=== PATIENT | female | born 1930 | race American Indian/Alaskan Native ===

== ENCOUNTER 2018-11-20 19:59 | Inpatient (IN) | payer MEDICARE ==
[2018-11-20] MEDS ORDERED: ZOFRAN IV ONE ×2 (20:27→23:46)
[2018-11-20] MEDS ORDERED: MORPHINE IV ONE ×2 (20:27→22:03)
--- NOTE | 2018-11-20 20:31 | Emergency Department Report ---
HPI - General Chief Complaint: Abdominal Pain Time Seen by Provider: 11/20/18 20:12 - HPI HPI: 88-year-old -[place] female presents to the emergency department by EMS from home with complaint of a one-week history of upper abdominal pain. Patient denies any fever, dysuria, vaginal bleeding or discharge, diarrhea or constipation but does say that she has an occasional episode of nausea and vomiting. She is a poor historian and the family that his bedside does not know the extent of her medical history. However they do say that she has CHF and she has her medications at bedside that also appeared to show a history of hypertension and some type of arrhythmia as she is on amiodarone. She usually receives care through [place] where she apparently was recently admitted. Family says that she is currently on hospice secondary to her CHF but she "wanted to go home." ED Past Medical Hx - Past Medical History Previous Medical History?: Yes Hx Hypertension: Yes Hx Congestive Heart Failure: Yes Hx Diabetes: Yes (Controlled with diet) Hx Pulmonary Embolism: Yes Additional medical history: A-fib. Stomach Ulcers - Surgical History Past Surgical History?: No - Social History Smoking Status: Former Smoker Substance Use Type: None - Medications Home Medications: Home Medications Medication Instructions Recorded Confirmed Last Taken Type Amiodarone [Cordarone 200 MG TAB] 200 mg PO DAILY 11/20/18 11/20/18 Unknown History Digoxin [Lanoxin] 0.125 mg PO DAILY 11/20/18 11/20/18 Unknown History Furosemide [Lasix TAB] 40 mg PO QDAY 11/20/18 11/20/18 Unknown History Hyoscyamine Sulfate [Hyoscyamine 0.125 mg PO Q6HR PRN 11/20/18 11/20/18 Unknown History Rapdis 0.125 mg] Ondansetron [Zofran TAB] 4 mg PO Q4HR PRN 11/20/18 11/20/18 Unknown History Pantoprazole [Protonix TAB] 40 mg PO BID 11/20/18 11/20/18 Unknown History dilTIAZem HCl [Diltiazem ER] 180 mg PO DAILY 11/20/18 11/20/18 Unknown History traMADol [Ultram] 50 mg PO Q8HR PRN 11/20/18 11/20/18 Unknown History ED Review of Systems ROS: Stated complaint: ABD PAIN X 1 WK Other details as noted in HPI Comment: All other systems reviewed and negative Constitutional: denies: chills, fever Eyes: denies: eye pain, vision change ENT: denies: ear pain, throat pain Respiratory: denies: cough, shortness of breath Cardiovascular: denies: chest pain, palpitations Gastrointestinal: abdominal pain, nausea, vomiting Genitourinary: denies: dysuria, discharge Musculoskeletal: denies: back pain, arthralgia Skin: denies: rash, lesions Neurological: denies: headache, weakness Physical Exam - Physical Exam Vital Signs: Vital Signs 11/20/18 11/20/18 20:04 20:24 Temperature 97.8 F Pulse Rate 77 Respiratory 12 14 Rate Blood Pressure 161/70 O2 Sat by Pulse 100 99 Oximetry Physical Exam: GENERAL: Elderly appearing. HENT: Normocephalic. Atraumatic. Patient has moist mucous membranes. EYES: Extraocular motions are intact. Pupils equal reactive to light bilatera lly. NECK: Supple. Trachea is midline. CHEST/LUNGS: Clear to auscultation. There is no respiratory distress noted. HEART/CARDIOVASCULAR: Regular. There is no tachycardia. There is no murmur. ABDOMEN: Abdomen is soft. Upper abdominal tenderness to palpation. No guarding. Patient has normal bowel sounds. There is no abdominal distention. SKIN: Skin is warm and dry. She has two small stage II sacral decubitus ulcers. NEURO: The patient is awake, alert, and cooperative. The patient has no focal neurologic deficits. She speaks very softly. MUSCULOSKELETAL: There is no tenderness or deformity. There is no evidence of acute injury. ED Course Vital Signs 11/20/18 11/20/18 20:04 20:24 Temperature 97.8 F Pulse Rate 77 Respiratory 12 14 Rate Blood Pressure 161/70 O2 Sat by Pulse 100 99 Oximetry ED Medical Decision Making - Lab Data Result diagrams: 11/20/18 21:03 11/20/18 21:03 - EKG Data -: EKG Interpreted by Me EKG shows normal: sinus rhythm, axis, intervals (prolonged QT and QTc), QRS complexes (RBBB), ST-T waves (nonspecific ST-T waves) Rate: normal - EKG Data When compared to previous EKG there are: previous EKG unavailable Interpretation: other (sinus rhythm, right bundle branch block, nonspecific ST-T waves, prolonged QT and QTC intervals) - Radiology Data Radiology results: report reviewed, image reviewed interpreted by me: Chest x-ray shows some pulmonary vascular congestion and mild basilar pleural effusions. Abdominal x-ray shows nonspecific nonobstructive bowel gas. PROCEDURE: CT ABDOMEN PELVIS WO CON TECHNIQUE: Computerized axial tomography of the abdomen was performed without intravenous contrast. This study is performed without intravascular contrast material and its sensitivity for abdominal and pelvic pathology, including neoplasms, inflammation, abscess, free fluid, thrombosis, arterial dissection and infarction, is reduced compared with a contrast enhanced study. CT DOSE LENGTH PRODUCT: 620 mGycm HISTORY: abd pain COMPARISONS: None . FINDINGS: Mild degree bilateral pleural effusions are identified. There is moderate degree cardiomegaly with coronary arterial calcification. Visualized bilateral lung bases are free of infiltrates. There is mild degree ascites. Liver demonstrates an irregular cystic lesion in segment 4A measuring 2.8 x 1.8 cm. Spleen, pancreas and adrenal glands are within normal limits. Bilateral kidneys demonstrate normal density without calculi or hydronephrosis. Aorta is of normal caliber. There is no free air. Gallbladder contains hyperdense fluid. Small bowel loops are within normal limits. Appendix is normal. An IVC filter is noted. Vertebral height is normal. IMPRESSION: Mild degree bilateral pleural effusions and a mild degree ascites Nonspecific cystic lesion left lobe liver Moderate degree cardiomegaly with coronary arterial calcification No obvious acute intra-abdominal or pelvic pathology. This document is electronically signed by Abel Almaguer MD., November 20 2018 11:07:04 PM ET Transcribed By: [facility] [place] Dictated By: ABEL ALMAGUER Electronically Authenticated By: ABEL ALMAGUER Signed Date/Time: 11/20/18 3869 - Medical Decision Making This patient presents with the complaint of some upper abdominal pain, and some intermittent nausea and vomiting. Apparently the patient is on hospice secondary to her CHF but she does not have any complaints at this time of new shortness of breath or chest pain. Patient's labs show renal failure, elevated troponin, elevated digoxin level, anemia. Chest x-ray shows some signs of pleural effusions and pulmonary vascular congestion. Abdominal x-ray shows nonspecific nonobstructive bowel gas. A CT scan of the abdomen and pelvis was done and does not show any intra-abdominal or pelvic pathology. The patient's digoxin level was 3.2 which is considered to be at a toxic level. There is no hyperkalemia. No significant EKG changes consistent with digoxin toxicity. It is most likely a chronic elevation as opposed to an acute ingestion. It is possible that the level is elevated secondary to her renal insufficiency and decreased ability to metabolize the medication. The patient will be admitted to the hospital for further evaluation and treatment and was accepted for admission by the hospitalist, Dr. Gamino. - Differential Diagnosis SBO, digoxin toxicity, Food poisoning, atypical OK Critical Care Time: No Critical care attestation.: If time is entered above; I have spent that time in minutes in the direct care of this critically ill patient, excluding procedure time. ED Disposition Clinical Impression: Digoxin toxicity Qualifiers: Encounter type: initial encounter Injury intent: accidental or unintentional Qualified Code(s): T46.0X1A - Poisoning by cardiac-stimulant glycosides and drugs of similar action, accidental (unintentional), initial encounter Abdominal pain Qualifiers: Abdominal location: upper abdomen, unspecified Qualified Code(s): R10.10 - Upper abdominal pain, unspecified CHF (congestive heart failure) Qualifiers: Heart failure type: unspecified Heart failure chronicity: unspecified Qualified Code(s): I50.9 - Heart failure, unspecified Acute renal failure Qualifiers: Acute renal failure type: unspecified Qualified Code(s): N17.9 - Acute kidney failure, unspecified Disposition: 09 OP ADMIT IP TO THIS HOSP Is pt being admited?: Yes Condition: Serious Time of Disposition: 03:27
[2018-11-20 21:26] LABS: Basophils # (Auto) 0.1 K/mm3 (0.0-0.1); Eosinophils % (Auto) 0.5 % (0.0-4.3); Hematocrit 29.9 % (30.3-42.9); Hemoglobin 9.5 gm/dl (10.1-14.3); Lymphocytes # (Auto) 0.5 K/mm3 (1.2-5.4); Lymphocytes % (Auto) 8.6 % (13.4-35.0); Mean Corpuscular HGB Conc 32 % (30-34); Mean Corpuscular Volume 90 fl (79-97); Monocytes # (Auto) 0.5 K/mm3 (0.0-0.8); Platelet Count 168 K/mm3 (140-440); Red Blood Count 3.33 M/mm3 (3.65-5.03); Red Cell Distribution Width 19.3 % (13.2-15.2)
--- NOTE | 2018-11-20 21:44 | XRay Report ---
PROCEDURE: XR ABDOMEN 2V TECHNIQUE: Abdominal series, including supine and upright AP views. HISTORY: Abdominal Pain COMPARISONS: None . FINDINGS: Bowel gas pattern: Mild degree of residual stool is noted in the colon and rectum. Intestinal gas is distributed predominantly in nondistended colon. Hyperdense material is noted in the large bowel most likely representing residual barium from prior barium study.. Masses or calcifications: None . Bony structures: No significant abnormality . Pneumoperitoneum: None . Other: An IVC filter is identified. IMPRESSION: No acute abnormality. This document is electronically signed by Ruben Almaguer MD., November 20 2018 09:42:45 PM ET
[2018-11-20 21:59] LABS: Albumin 2.7 g/dL (3.9-5); Bilirubin,Direct 0.3 mg/dL (0-0.2); Calcium 8.3 mg/dL (8.4-10.2)
[2018-11-20 22:09] LABS: Chol/HDL Ratio 2.37 %
--- NOTE | 2018-11-20 22:35 | XRay Report ---
PROCEDURE: XR CHEST 1V AP TECHNIQUE: Chest radiograph single view. HISTORY: CP COMPARISONS: None . FINDINGS: Heart: Normal. Mediastinum/Vessels: Mild degree pulmonary venous congestion is noted.. Lungs/Pleural space: There is moderate degree of elevation of right hemidiaphragm. Mild blunting of right costophrenic angle is noted. A patchy density is noted in the left lower lung.. Bony thorax: No acute osseous abnormality. Life support devices: None. IMPRESSION: Mild degree right pleural effusion Mild degree pulmonary venous congestion consistent with CHF Patchy density left lower lung may represent atelectatic versus infiltrative changes. A two-view ches t study is recommended whenever the patient's condition permits.. This document is electronically signed by Ruben Almaguer MD., November 20 2018 10:33:09 PM ET
--- NOTE | 2018-11-20 23:09 | Cat Scan Report ---
PROCEDURE: CT ABDOMEN PELVIS WO CON TECHNIQUE: Computerized axial tomography of the abdomen was performed without intravenous contrast. This study is performed without intravascular contrast material and its sensitivity for abdominal and pelvic pathology, including neoplasms, inflammation, abscess, free fluid, thrombosis, arterial disse ction and infarction, is reduced compared with a contrast enhanced study. CT DOSE LENGTH PRODUCT: 620 mGycm HISTORY: abd pain COMPARISONS: None . FINDINGS: Mild degree bilateral pleural effusions are identified. There is moderate degree cardiomegaly with co ronary arterial calcification. Visualized bilateral lung bases are free of infiltrates. There is mild degree ascites. Liver demonstrates an irregular cystic lesion in segment 4A measuring 2.8 x 1.8 cm. Spleen, pancreas and adrenal glands are within normal limits. Bilateral kidneys demonstrate normal de nsity without calculi or hydronephrosis. Aorta is of normal caliber. There is no free air. Gallbladde r contains hyperdense fluid. Small bowel loops are within normal limits. Appendix is normal. An IVC f ilter is noted. Vertebral height is normal. IMPRESSION: Mild degree bilateral pleural effusions and a mild degree ascites Nonspecific cystic lesion left lobe liver Moderate degree cardiomegaly with coronary arterial calcification No obvious acute intra-abdominal or pelvic pathology. This document is electronically signed by Ruben Almaguer MD., November 20 2018 11:07:04 PM ET
[2018-11-20] MEDS ORDERED: PEPCID IV ONE ×2 (23:47→23:51)
[2018-11-21] MEDS ORDERED: NACL 0.9% 500 ML 500 ML IV ONE (00:01)
[2018-11-21] MEDS ORDERED: NON-FORMULARY (Hyoscyamine Sulfate [Hyoscyamine Rapdis 0.125 Mg] 0.125 MG) PO PRN (00:14)
[2018-11-21] MEDS ORDERED: ZOFRAN IV PRN (00:16)
[2018-11-21] MEDS ORDERED: SODIUM CHLORIDE FLUSH SYRINGE 10 ML IV PRN (00:16)
[2018-11-21] MEDS ORDERED: TYLENOL PO PRN (00:16)
[2018-11-21] MEDS ORDERED: MORPHINE IV PRN (00:21)
[2018-11-21] MEDS ORDERED: CARDIZEM IV PRN (00:26)
--- NOTE | 2018-11-21 00:32 | History and Physical Report ---
History of Present Illness Chief complaint: I have pain in my belly History of present illness: 88-year-old woman who was brought in by EMS for 1 week of upper abdominal pain. The pain started out mild, but it had worsened in intensity. It is generalized abdominal pain. Associated with nausea and vomiting. She has vomited multiple times today and unable to keep anything down. Past medical history; A. fib, peptic ulcer disease, history of pulmonary embolism not currently on anticoagulation, diet-controlled type 2 diabetes, CHF on digoxin, hypertension Past surgical history; denies major surgeries Social history; former smoker, lives at home, Family history; heart disease Constitutional: no fever, no chills, no night sweats, generalized weakness and fatigue Eyes: bilateral: other (no complaint of visual problems.) Ears, nose, mouth and throat: mouth pain, no ear pain, no ear discharge, no decreased hearing, no nose pain, no nasal congestion, no bleeding gums, no dental pain, no dysphagia, no hoarseness, no sore throat Cardiovascular: no orthopnea, no palpitations, no rapid/irregular heart beat, no phlebitis Respiratory: no cough with sputum, no excessive sputum, no hemoptysis, no wheezing, no pleurisy, no pain Gastrointestinal: Complaining of abdominal pain nausea and vomiting Rectal: no pain, no incontinence, no bleeding Musculoskeletal: no neck stiffness, no neck pain, no shooting arm pain, no arm numbness/tingling, no low back pain, no shooting leg pain, no leg numbness/tingling Integumentary: no pruritis, no redness, no sores Neurological: no transient paralysis, no paralysis, no weakness Psychiatric: no memory loss, no change in sleep habits, no disorientation Endocrine: no heat intolerance, no polyphagia Hematologic/Lymphatic: no easy bruising, no easy bleeding Allergic/Immunologic: no allergic rhinitis Medications and Allergies Allergies Allergy/AdvReac Type Severity Reaction Status Date / Time No Known Allergies Allergy Verified 11/20/18 20:04 Home Medications Medication Instructions Recorded Confirmed Last Taken Type Amiodarone [Cordarone 200 MG TAB] 200 mg PO DAILY 11/20/18 11/20/18 Unknown History Digoxin [Lanoxin] 0.125 mg PO DAILY 11/20/18 11/20/18 Unknown History Furosemide [Lasix TAB] 40 mg PO QDAY 11/20/18 11/20/18 Unknown History Hyoscyamine Sulfate [Hyoscyamine 0.125 mg PO Q6HR PRN 11/20/18 11/20/18 Unknown History Rapdis 0.125 mg] Ondansetron [Zofran TAB] 4 mg PO Q4HR PRN 11/20/18 11/20/18 Unknown History Pantoprazole [Protonix TAB] 40 mg PO BID 11/20/18 11/20/18 Unknown History dilTIAZem HCl [Diltiazem ER] 180 mg PO DAILY 11/20/18 11/20/18 Unknown History traMADol [Ultram] 50 mg PO Q8HR PRN 11/20/18 11/20/18 Unknown History Active Meds: Active Medications Acetaminophen (Tylenol) 650 mg PO Q4H PRN PRN Reason: Pain MILD(1-3)/Fever >100.5/OLIVIER Diltiazem HCl (Cardizem) 10 mg IV Q6H PRN PRN Reason: sustained HR > 130 Enoxaparin Sodium (Lovenox) 30 mg SUB-Q QDAY MARY JANE Sodium Chloride (Nacl 0.9% 500 Ml) 500 mls @ 999 mls/hr IV ONCE ONE Stop: 11/21/18 00:31 Last Admin: 11/21/18 00:23 Dose: 999 mls/hr Documented by: Miscellaneous Medication (Hyoscyamine Sulfate [Hyoscyamine Rapdis 0.125 Mg]) 0.125 mg PO Q6HR PRN PRN Reason: Secretions Morphine Sulfate (Morphine) 2 mg IV Q4H PRN PRN Reason: Pain, Moderate (4-6) Ondansetron HCl (Zofran) 4 mg IV Q4HR PRN PRN Reason: Nausea And Vomiting Sodium Chloride (Sodium Chloride Flush Syringe 10 Ml) 10 ml IV BID MARY JANE Sodium Chloride (Sodium Chloride Flush Syringe 10 Ml) 10 ml IV PRN PRN PRN Reason: LINE FLUSH Exam - Constitutional Vitals: Temp Pulse Resp BP Pulse Ox 97.8 F 62 9 L 148/104 98 11/20/18 20:04 11/21/18 00:00 11/21/18 00:00 11/21/18 00:00 11/21/18 00:00 General appearance: Present: mild distress, well-nourished - EENT Eyes: Present: PERRL ENT: hearing intact, clear oral mucosa (dry mucous membranes) - Neck Neck: Present: supple, normal ROM - Respiratory Respiratory effort: normal Respiratory: bilateral: CTA - Cardiovascular Heart Sounds: Present: S1 & S2. Absent: rub, click - Extremities Extremities: pulses symmetrical, No edema Peripheral Pulses: within normal limits - Abdominal General gastrointestinal: Present: soft, non-tender, non-distended, normal bowel sounds Female genitourinary: Present: normal - Integumentary Integumentary: Present: clear, warm, dry - Musculoskeletal Musculoskeletal: gait normal, strength equal bilaterally - Psychiatric Psychiatric: appropriate mood/affect, intact judgment & insight - Neurologic Neurologic: CNII-XII intact, moves all extremities Results - Labs CBC & Chem 7: 11/20/18 21:03 11/20/18 21:03 Labs: Laboratory Last Values WBC 5.5 K/mm3 (4.5-11.0) 11/20/18 21:03 RBC 3.33 M/mm3 (3.65-5.03) L 11/20/18 21:03 Hgb 9.5 gm/dl (10.1-14.3) L 11/20/18 21:03 Hct 29.9 % (30.3-42.9) L 11/20/18 21:03 MCV 90 fl (79-97) 11/20/18 21:03 MCH 29 pg (28-32) 11/20/18 21:03 MCHC 32 % (30-34) 11/20/18 21:03 RDW 19.3 % (13.2-15.2) H 11/20/18 21:03 Plt Count 168 K/mm3 (140-440) 11/20/18 21:03 Lymph % (Auto) 8.6 % (13.4-35.0) L 11/20/18 21:03 [place] % (Auto) 10.0 % (0.0-7.3) H 11/20/18 21:03 Eos % (Auto) 0.5 % (0.0-4.3) 11/20/18 21:03 Baso % (Auto) 1.0 % (0.0-1.8) 11/20/18 21:03 Lymph # 0.5 K/mm3 (1.2-5.4) L 11/20/18 21:03 [place] # 0.5 K/mm3 (0.0-0.8) 11/20/18 21:03 Eos # 0.0 K/mm3 (0.0-0.4) 11/20/18 21:03 Baso # 0.1 K/mm3 (0.0-0.1) 11/20/18 21:03 Seg Neutrophils % 79.9 % (40.0-70.0) H 11/20/18 21:03 Seg Neutrophils # 4.4 K/mm3 (1.8-7.7) 11/20/18 21:03 Sodium 137 mmol/L (137-145) 11/20/18 21:03 Potassium 4.0 mmol/L (3.6-5.0) 11/20/18 21:03 Chloride 90.8 mmol/L (98-107) L 11/20/18 21:03 Carbon Dioxide 35 mmol/L (22-30) H 11/20/18 21:03 15 mmol/L 11/20/18 21:03 BUN 27 mg/dL (7-17) H 11/20/18 21:03 1.9 mg/dL (0.7-1.2) H 11/20/18 21:03 Estimated GFR 25 ml/min 11/20/18 21:03 14 % 11/20/18 21:03 Glucose 117 mg/dL (65-100) H 11/20/18 21:03 Calcium 8.3 mg/dL (8.4-10.2) L 11/20/18 21:03 0.60 mg/dL (0.1-1.2) 11/20/18 21:03 0.3 mg/dL (0-0.2) H 11/20/18 21:03 0.3 mg/dL 11/20/18 21:03 AST 22 units/L (5-40) 11/20/18 21:03 ALT 15 units/L (7-56) 11/20/18 21:03 103 units/L (35-129) 11/20/18 21:03 0.075 ng/mL (0.00-0.029) H 11/20/18 21:03 6.3 g/dL (6.3-8.2) 11/20/18 21:03 2.7 g/dL (3.9-5) L 11/20/18 21:03 0.8 % 11/20/18 21:03 Triglycerides 98 mg/dL (2-149) 11/20/18 21:03 Cholesterol 157 mg/dL (50-199) 11/20/18 21:03 78 mg/dL (50-130) 11/20/18 21:03 66 mg/dL (40-59) H 11/20/18 21:03 2.37 % 11/20/18 21:03 7 units/L (13-60) L 11/20/18 21:03 Digoxin 3.2 ng/mL (0.9-2.0) H* 11/20/18 21:03 Assessment and Plan Assessment and plan: 88-year-old woman who has history of CHF and A. fib who is on digoxin at home who presents with nausea vomiting and abdominal pain CT abdomen and pelvis; mild degree bilateral pleural effusions and a mild degree ascites, nonspecific cystic lesion of left lobe of liver, moderate degree cardiomegaly with coronary arterial calcification, no obvious intra-abdominal or pelvic pathology Abdominal x-ray; no acute abnormality Chest x-ray; mild degree right pleural effusion, mild degree pulmonary venous congestion consistent with CHF, patchy density left lower lung a represent atelectasis versus infiltrative changes, a 2 view chest x-ray is recommended and patient's condition permits Digoxin toxicity/supratherapeutic levels Hold digoxin, check levels daily, no arrthymia on EKG, no hyperkalemia (no need for digibind at this time) Nausea vomiting/abdominal pain CT abdomen and pelvis shows no acute findings likely due to digoxin toxicity, cont PPI, convert meds to IV and keep NPO for now, plan to start clear liquid diet in am (if N/V has resolved by them), primary team to reasses in am Chronic afib HR currently in 60s-70s (at risk for bradycardia arrhythmia given digoxin toxicity), hold amio and dilt at this time, give IV dilt PRN HR > 130 Acute kidney injury, likely due to dig toxicity Patient received 500 mL of fluid in the ER, she has not made urine yet, will obtain UA and urine studies when she makes urine, and nephrology consults CHF; cardiology consult, does not appear to be clinically in exacerbation at this time, will not give any further fluids at this point, obtain echo (takes amio, cardizem, lasix and dig at home) Liver cysts/mass; patient should get MRI liver when she is clinically improved Left lung infiltrate?; Obtain 2 view chest x-ray, clinically doubt pneumonia at this point History of peptic ulcer disease; continue Protonix Diet-controlled type 2 diabetes; sliding scale insulin. DVT prophylaxis with Lovenox
[2018-11-21] MEDS ORDERED: D50W (25GM) Syringe IV PRN (00:35)
[2018-11-21] MEDS ORDERED: LEVSIN SL PO PRN (00:40)
--- NOTE | 2018-11-21 01:11 | XRay Report ---
PROCEDURE: XR CHEST 1V AP TECHNIQUE: Chest radiograph single view. HISTORY: infiltrate? on 1v xr COMPARISONS: 11/20/2018 . FINDINGS: Heart: The heart size is slightly pronounced. Mediastinum/Vessels: Normal. Lungs/Pleural space: Mild vascular congestion with bilateral lower lung atelectasis and mild effusio ns.. Bony thorax: No acute osseous abnormality. Life support devices: None. IMPRESSION: Mild CHF with bilateral lower lung atelectasis and mild effusions. This document is electronically signed by Rachel Negro DO., November 21 2018 01:08:55 AM ET
[2018-11-21] MEDS: LEVSIN SL PO PRN ×2 (03:27→09:34)
[2018-11-21] MEDS: HumaLOG SUB-Q SCH ×3 (06:25→17:11)
[2018-11-21] MEDS: PROTONIX IV SCH (09:33)
[2018-11-21] MEDS: LOVENOX SUB-Q SCH (09:33)
[2018-11-21] MEDS: SODIUM CHLORIDE FLUSH SYRINGE 10 ML IV SCH ×2 (09:43→22:59)
--- NOTE | 2018-11-21 10:05 | Consultation ---
History of Present Illness Consult date: 11/21/18 Consult reason: congestive heart failure History of present illness: This is a frail, 88-year old woman who was brought to this hospital with nausea, vomiting abdominal pain admitted with renal failure and digoxin toxicity. It's reported the patient was recently discharged from [facility] after treatment of CHF. There are no records available for review. Patient denies unusual shortness of breath, chest pain and palpitations. Chest x-ray reports mild vascular congestion with bilateral lower lung atelectasis. An EKG is sinus rhythm with a right bundle branch block. Medications and Allergies Allergies Allergy/AdvReac Type Severity Reaction Status Date / Time No Known Allergies Allergy Verified 11/20/18 20:04 Home Medications Medication Instructions Recorded Confirmed Last Taken Type Amiodarone [Cordarone 200 MG TAB] 200 mg PO DAILY 11/20/18 11/20/18 Unknown History Digoxin [Lanoxin] 0.125 mg PO DAILY 11/20/18 11/20/18 Unknown History Furosemide [Lasix TAB] 40 mg PO QDAY 11/20/18 11/20/18 Unknown History Hyoscyamine Sulfate [Hyoscyamine 0.125 mg PO Q6HR PRN 11/20/18 11/20/18 Unknown History Rapdis 0.125 mg] Ondansetron [Zofran TAB] 4 mg PO Q4HR PRN 11/20/18 11/20/18 Unknown History Pantoprazole [Protonix TAB] 40 mg PO BID 11/20/18 11/20/18 Unknown History dilTIAZem HCl [Diltiazem ER] 180 mg PO DAILY 11/20/18 11/20/18 Unknown History traMADol [Ultram] 50 mg PO Q8HR PRN 11/20/18 11/20/18 Unknown History Active Meds: Active Medications Acetaminophen (Tylenol) 650 mg PO Q4H PRN PRN Reason: Pain MILD(1-3)/Fever >100.5/OLIVIER Dextrose (D50w (25gm) Syringe) 50 ml IV PRN PRN PRN Reason: Hypoglycemia Diltiazem HCl (Cardizem) 10 mg IV Q6H PRN PRN Reason: sustained HR > 130 Enoxaparin Sodium (Lovenox) 30 mg SUB-Q QDAY MARY JANE Last Admin: 11/21/18 09:33 Dose: 30 mg Documented by: Hyoscyamine (Levsin Sl) 0.125 mg PO Q6H PRN PRN Reason: Secretions; mild pain (1-3) Last Admin: 11/21/18 09:34 Dose: 0.125 mg Documented by: Insulin Human Lispro (Humalog) 0 unit SUB-Q Q6HR [facility]; Protocol Last Admin: 11/21/18 06:25 Dose: Not Given Documented by: Morphine Sulfate (Morphine) 2 mg IV Q4H PRN PRN Reason: Pain, Moderate (4-6) Ondansetron HCl (Zofran) 4 mg IV Q4HR PRN PRN Reason: Nausea And Vomiting Last Admin: 11/21/18 09:41 Dose: 4 mg Documented by: Pantoprazole Sodium (Protonix) 40 mg IV QDAY [facility] Last Admin: 11/21/18 09:33 Dose: 40 mg Documented by: Sodium Chloride (Sodium Chloride Flush Syringe 10 Ml) 10 ml IV BID [facility] Last Admin: 11/21/18 09:43 Dose: 10 ml Documented by: Sodium Chloride (Sodium Chloride Flush Syringe 10 Ml) 10 ml IV PRN PRN PRN Reason: LINE FLUSH Physical Examination Vital Signs Temp Pulse Resp BP Pulse Ox 97.8 F 77 12 161/70 100 11/20/18 20:04 11/20/18 20:04 11/20/18 20:04 11/20/18 20:04 11/20/18 20:04 General appearance: no acute distress Cardiac: Positive: Reg Rate and Rhythm Results 11/20/18 21:03 11/20/18 21:03 Cardiac Enzymes 11/20/18 Range/Units 21:03 AST 22 (5-40) units/L Lipids 11/20/18 Range/Units 21:03 Triglycerides 98 (2-149) mg/dL Cholesterol 157 (50-199) mg/dL HDL Cholesterol 66 H (40-59) mg/dL Cholesterol/HDL Ratio 2.37 % CBC 11/20/18 Range/Units 21:03 WBC 5.5 (4.5-11.0) K/mm3 RBC 3.33 L (3.65-5.03) M/mm3 Hgb 9.5 L (10.1-14.3) gm/dl Hct 29.9 L (30.3-42.9) % Plt Count 168 (140-440) K/mm3 Lymph # 0.5 L (1.2-5.4) K/mm3 Lander # 0.5 (0.0-0.8) K/mm3 Eos # 0.0 (0.0-0.4) K/mm3 Baso # 0.1 (0.0-0.1) K/mm3 Comprehensive Metabolic Panel 11/20/18 Range/Units 21:03 Sodium 137 (137-145) mmol/L Potassium 4.0 (3.6-5.0) mmol/L Chloride 90.8 L (98-107) mmol/L Carbon Dioxide 35 H (22-30) mmol/L BUN 27 H (7-17) mg/dL Creatinine 1.9 H (0.7-1.2) mg/dL Glucose 117 H (65-100) mg/dL Calcium 8.3 L (8.4-10.2) mg/dL Direct Bilirubin 0.3 H (0-0.2) mg/dL Indirect Bilirubin 0.3 mg/dL AST 22 (5-40) units/L ALT 15 (7-56) units/L Alkaline Phosphatase 103 (35-129) units/L Total Protein 6.3 (6.3-8.2) g/dL Albumin 2.7 L (3.9-5) g/dL Assessment and Plan Abdominal pain with n/v Acute renal failure Digoxin toxicity Acute on chronic CHF
--- NOTE | 2018-11-21 11:26 | Consultation ---
History of Present Illness - Reason for Consult Consult date: 11/21/18 acute renal failure Requesting physician: ELVIRA BARRETT - History of Present Illness 88-year-old lady with a history of hypertension, atrial fibrillation, congestive heart failure on digoxin was recently hospitalized at [facility] with congestive heart failure exacerbation. Patient was discharged on home hospice. Presents on account of 3 day history of upper abdominal pain with nausea and vomiting. No diarrhea. No fever or chills. Appetite has been poor. Patient's grandsons live with her and unfortunately do not really taking care of her and so when her nieces came to visit her from [place] and saw patient's condition and especially when her symptoms kept getting worse they decided to bring her to the hospital for evaluation. On admission, BUN/creatinine of 27/1 .9 mg/dL. I'm consulted to assist in managing this. Patient is not aware of having any kidney problems Past History Past Medical History: atrial fib, diabetes (peptic ulcer disease), hypertension, other (peptic ulcer disease, history of pulmonary embolism) Past Surgical History: No surgical history Social history: alcohol abuse (drank alcohol socially sparingly but has not had a drink in a long time), other (her grandsons live with her. 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 denies: smoking, prescription drug abuse, IV drug use Family history: cancer (couple of brothers of cancer), diabetes (Mother of complications of diabetes mellitus.), other (father of tuberculosis at a young age) Medications and Allergies Allergies Allergy/AdvReac Type Severity Reaction Status Date / Time No Known Allergies Allergy Verified 11/20/18 20:04 Home Medications Medication Instructions Recorded Confirmed Last Taken Type Amiodarone [Cordarone 200 MG TAB] 200 mg PO DAILY 11/20/18 11/20/18 Unknown History Digoxin [Lanoxin] 0.125 mg PO DAILY 11/20/18 11/20/18 Unknown History Furosemide [Lasix TAB] 40 mg PO QDAY 11/20/18 11/20/18 Unknown History Hyoscyamine Sulfate [Hyoscyamine 0.125 mg PO Q6HR PRN 11/20/18 11/20/18 Unknown History Rapdis 0.125 mg] Ondansetron [Zofran TAB] 4 mg PO Q4HR PRN 11/20/18 11/20/18 Unknown History Pantoprazole [Protonix TAB] 40 mg PO BID 11/20/18 11/20/18 Unknown History dilTIAZem HCl [Diltiazem ER] 180 mg PO DAILY 11/20/18 11/20/18 Unknown History traMADol [Ultram] 50 mg PO Q8HR PRN 11/20/18 11/20/18 Unknown History Active Meds: Active Medications Acetaminophen (Tylenol) 650 mg PO Q4H PRN PRN Reason: Pain MILD(1-3)/Fever >100.5/OLIVIER Dextrose (D50w (25gm) Syringe) 50 ml IV PRN PRN PRN Reason: Hypoglycemia Diltiazem HCl (Cardizem) 10 mg IV Q6H PRN PRN Reason: sustained HR > 130 Enoxaparin Sodium (Lovenox) 30 mg SUB-Q QDAY [facility] Last Admin: 11/21/18 09:33 Dose: 30 mg Documented by: Hyoscyamine (Levsin Sl) 0.125 mg PO Q6H PRN PRN Reason: Secretions; mild pain (1-3) Last Admin: 11/21/18 09:34 Dose: 0.125 mg Documented by: Insulin Human Lispro (Humalog) 0 unit SUB-Q Q6HR [facility]; Protocol Last Admin: 11/21/18 06:25 Dose: Not Given Documented by: Morphine Sulfate (Morphine) 2 mg IV Q4H PRN PRN Reason: Pain, Moderate (4-6) Ondansetron HCl (Zofran) 4 mg IV Q4HR PRN PRN Reason: Nausea And Vomiting Last Admin: 11/21/18 09:41 Dose: 4 mg Documented by: Pantoprazole Sodium (Protonix) 40 mg IV QDAY [facility] Last Admin: 11/21/18 09:33 Dose: 40 mg Documented by: Sodium Chloride (Sodium Chloride Flush Syringe 10 Ml) 10 ml IV BID [facility] Last Admin: 11/21/18 09:43 Dose: 10 ml Documented by: Sodium Chloride (Sodium Chloride Flush Syringe 10 Ml) 10 ml IV PRN PRN PRN Reason: LINE FLUSH Review of Systems All systems: negative (Constitutional: no fever or chills. No anorexia or weight loss. HEENT: No sore throat or sinus drainage no hearing or vision impairment . Cardiovascular: No chest pain, admits to shortness of breath, no palpitations, lower extremity swelling or dizziness. Respiratory: Cough productive of whitish sputum, shortness of breath, hemoptysis or wheezing. Gastrointestinal: No nausea, vomiting, diarrhea, abdominal pain, hematemesis or melena. Genitourinary: No frequency urgency dysuria or hematuria. hematologic: No abnormal bleeding or bruising. Integumentary: Admits to generalized itching but no rash. Musculoskeletal: No joint pains no stiffness. Psychiatry: no anxiety or depression) Exam - Vital Signs Vital signs: Vital Signs Temp Pulse Resp BP Pulse Ox 97.8 F 77 12 161/70 100 11/20/18 20:04 11/20/18 20:04 11/20/18 20:04 11/20/18 20:04 11/20/18 20:04 Results - Lab Results 11/20/18 21:03 11/20/18 21:03 Most recent lab results Calcium 8.3 mg/dL (8.4-10.2) L 11/20/18 21:03 Assessment and Plan - Patient Problems (1) Acute renal failure Current Visit: Yes Status: Acute Qualifiers: Acute renal failure type: unspecified Qualified Code(s): N17.9 - Acute kidney failure, unspecified Plan to address problem: Acute on Chronic kidney injury. Suspect acute cardiorenal syndrome. Get urine studies and kidney ultrasound. NEED TO REVIEW RECORDS FROM [place] TO ASCERTAIN BASELINE KIDNEY FUNCTION. FOLLOW-UP ELECTROLYTES AND FUNCTION. (2) Nausea and vomiting Current Visit: Yes Status: Acute Plan to address problem: Continue antiemetics. (3) Hypertensive chronic kidney disease with stage 1 through stage 4 chronic kidney disease, or unspecified chronic kidney disease Current Visit: Yes Status: Acute Plan to address problem: Follow-up blood pressure on current medications (4) Chronic kidney disease, unspecified Current Visit: Yes Status: Acute Plan to address problem: Suspect patient has chronic kidney disease possibly secondary to hypertensive nephrosclerosis and/or chronic cardiorenal syndrome. Get old records from [facility]. Follow-up electrolytes and renal function (5) CHF (congestive heart failure) Current Visit: Yes Status: Acute Qualifiers: Heart failure type: unspecified Heart failure chronicity: unspecified Qualified Code(s): I50.9 - Heart failure, unspecified Plan to address problem: Get records from [place]. Follow-up 2-D echo. Gentle diuresis. Cardiology has been consulted. (6) Digoxin toxicity Current Visit: Yes Status: Acute Qualifiers: Encounter type: initial encounter Injury intent: accidental or unintentional Qualified Code(s): T46.0X1A - Poisoning by cardiac-stimulant glycosides and drugs of similar action, accidental (unintentional), initial encounter Plan to address problem: Probably secondary to decreased renal clearance. Agree with holding digoxin. Follow-up level (7) Anemia Current Visit: Yes Status: Acute Plan to address problem: Suspect anemia of chronic kidney disease. Unclear if there is any acute worsening. Get old records. Follow-up hemoglobin and get anemia workup
--- NOTE | 2018-11-21 17:26 | Event Note ---
Date: 11/21/18 She was admitted this morning with abdominal and chest pain and acute kidney injury Sincerely and examined medical records reviewed Patient is evaluated by cardiology as well as nephrology Assessment and plan; --Abdominal pain with intractable nausea vomiting; Center abdomen no acute abnormalities Probably secondary to dig toxicity Patient has history of GI bleeding, endoscopy done in [facility] Protonix, hold digoxin, supportive care --Acute renal failure; vasomotor nephropathy, gentle hydration Avoid nephrotoxins, nephrology following --History of PE not on anticoagulation[due to GI bleeding] --Status post IVC filter placement --Chronic diastolic congestive heart failure ;Diastolic dysfunction on echo Cardiology following --Digoxin toxicity; causing GI symptoms, hold digoxin --History of recent aspiration pneumonia --Severe malnutrition/hypoalbuminemia; supportive care nutrition consult if needed --Discharge planning; home hospice Monitor glucoses and adjust management Possible discharge in 1-2 days if stable
[2018-11-22 06:36] LABS: Calcium 8.8 mg/dL (8.4-10.2)
[2018-11-22] MEDS: HumaLOG SUB-Q SCH ×2 (07:55→12:14)
[2018-11-22] MEDS: PROTONIX IV SCH (10:25)
[2018-11-22] MEDS: SODIUM CHLORIDE FLUSH SYRINGE 10 ML IV SCH (10:26)
[2018-11-22] MEDS: LOVENOX SUB-Q SCH (10:26)
--- NOTE | 2018-11-22 11:30 | Progress Note ---
Assessment and Plan Chronic diastolic heart failure with cor pulmonale on echo done at [place] November 2018. Echo at [place] showing normal LVEF, Grade 2 DDx, moderate RVE, moderate to severe TR, RVSP 77 mm Hg and dilated IVC History of acute PE November 2018 not on anticoagulation due to lower GI bleeding. s/p IVC filter. Endoscopy not performed at [place]. Recently admitted to [place] for aspiration pneumonia, respiratory failure and discharged to home hospice Chronic renal failure with a creatinine of 2.11 Abdominal pain, nausea and vomiting - reason for admission Likely secondary to dig toxicity NAP on abdomen CT Recommendations: Supportive care No further cardiac work-up Avoid digoxin Subjective Date of service: 11/22/18 Principal diagnosis: Nausea and vomiting Interval history: Patient is feeling better this morning Nausea has improved Objective Vital Signs Temp Pulse Resp BP Pulse Ox 11/22/18 07:57 97.9 F 83 16 160/73 100 11/21/18 23:55 97.8 F 91 H 18 147/77 100 11/21/18 19:56 98.3 F 88 18 140/81 100 11/21/18 19:53 85 11/21/18 16:18 97.9 F 85 18 154/74 98 11/21/18 12:24 97.9 F 79 18 143/63 96 - Physical Examination General: Appears Well Neck: Positive: neck supple Cardiac: Positive: irregularly irregular Lungs: Positive: Decreased Breath Sounds - Labs and Meds Comprehensive Metabolic Panel 11/22/18 Range/Units 05:22 Sodium 141 (137-145) mmol/L Potassium 3.9 (3.6-5.0) mmol/L Chloride 96.4 L (98-107) mmol/L Carbon Dioxide 32 H (22-30) mmol/L BUN 27 H (7-17) mg/dL Creatinine 1.7 H (0.7-1.2) mg/dL Glucose 95 (65-100) mg/dL Calcium 8.8 (8.4-10.2) mg/dL
--- NOTE | 2018-11-22 13:04 | Progress Note ---
Assessment and Plan - Patient Problems (1) Acute renal failure Current Visit: Yes Status: Acute Qualifiers: Acute renal failure type: unspecified Qualified Code(s): N17.9 - Acute kidney failure, unspecified Plan to address problem: Overall renal function is stable. Continue to monitor. (2) CHF (congestive heart failure) Current Visit: Yes Status: Acute Qualifiers: Heart failure type: unspecified Heart failure chronicity: unspecified Qualified Code(s): I50.9 - Heart failure, unspecified Plan to address problem: Seems to be euvolemic at this time. Pending review of previous ECHO from [place]. Await cardiology recommendations. (3) Chronic kidney disease, unspecified Current Visit: Yes Status: Acute Qualifiers: Chronic kidney disease stage: stage 3 (moderate) Qualified Code(s): N18.3 - Chronic kidney disease, stage 3 (moderate) Plan to address problem: Renal function seems to be improving slowly, unclear overall baseline. (4) Digoxin toxicity Current Visit: Yes Status: Acute Qualifiers: Encounter type: initial encounter Injury intent: accidental or unintentional Qualified Code(s): T46.0X1A - Poisoning by cardiac-stimulant glycosides and drugs of similar action, accidental (unintentional), initial encounter Plan to address problem: Digoxin level noted, agree with continuing to hold. (5) Hypertensive chronic kidney disease with stage 1 through stage 4 chronic kidney disease, or unspecified chronic kidney disease Current Visit: Yes Status: Chronic Plan to address problem: Monitor on current regimen. (6) Nausea and vomiting Current Visit: Yes Status: Acute Plan to address problem: Symptomatic management per primary attending. May be in the setting of digoxin toxicity. Will monitor. Subjective Date of service: 11/22/18 Principal diagnosis: Nausea and vomiting Interval history: No acute events overnight. Labs noted and renal function overall stable. Objective - Vital Signs Vital signs: Vital Signs - 12hr 11/22/18 11/22/18 07:00 07:57 Temperature 97.9 F Pulse Rate 95 H 83 Respiratory 16 Rate Blood Pressure 160/73 O2 Sat by Pulse 100 Oximetry - General Appearance General appearance: appears stated age, cachectic, chronically ill, frail EENT: ATNC, PERRL Neck: no JVD, no thyromegaly Respiratory: Present: Clear to Ascultation Cardiology: regular, S1S2 Gastrointestinal: normal, normoactive bowel sounds Integumentary: no rash, warm and dry Neurologic: no focal deficit, no asterixis, alert and oriented x3 Musculoskeletal: other (-edema) Psychiatric: mood/affect appropriate, cooperative - Lab 11/20/18 21:03 11/22/18 05:22 Most recent lab results Calcium 8.8 mg/dL (8.4-10.2) 11/22/18 05:22 - Allied health notes Allied health notes reviewed: nursing Medications & Allergies - Medications Allergies/Adverse Reactions: Allergies No Known Allergies Allergy (Verified 11/20/18 20:04) Home Medications: Home Medications Medication Instructions Recorded Confirmed Last Taken Type Amiodarone [Cordarone 200 MG TAB] 200 mg PO DAILY 11/20/18 11/20/18 Unknown History Digoxin [Lanoxin] 0.125 mg PO DAILY 11/20/18 11/20/18 Unknown History Furosemide [Lasix TAB] 40 mg PO QDAY 11/20/18 11/20/18 Unknown History Hyoscyamine Sulfate [Hyoscyamine 0.125 mg PO Q6HR PRN 11/20/18 11/20/18 Unknown History Rapdis 0.125 mg] Ondansetron [Zofran TAB] 4 mg PO Q4HR PRN 11/20/18 11/20/18 Unknown History Pantoprazole [Protonix TAB] 40 mg PO BID 11/20/18 11/20/18 Unknown History dilTIAZem HCl [Diltiazem ER] 180 mg PO DAILY 11/20/18 11/20/18 Unknown History traMADol [Ultram] 50 mg PO Q8HR PRN 11/20/18 11/20/18 Unknown History Active Medications: Generic Name Dose Route Start Last Admin Trade Name Freq PRN Reason Stop Dose Admin Acetaminophen 650 mg 11/21/18 00:16 Tylenol PO Q4H PRN Pain MILD(1-3)/Fever >100.5/OLIVIER Dextrose 50 ml 11/21/18 00:35 D50w (25gm) Syringe IV PRN PRN Hypoglycemia Diltiazem HCl 10 mg 11/21/18 00:26 Cardizem IV Q6H PRN sustained HR > 130 Enoxaparin Sodium 30 mg 11/21/18 10:00 11/22/18 10:26 Lovenox SUB-Q 30 mg QDAY MARY JANE Administration Hyoscyamine 0.125 mg 11/21/18 02:44 11/21/18 09:34 Levsin Sl PO 0.125 mg Q6H PRN Administration Secretions; mild pain (1-3) Insulin Human Lispro 0 unit 11/21/18 06:00 11/22/18 12:14 Humalog SUB-Q Not Given Q6HR [facility] Protocol Morphine Sulfate 2 mg 11/21/18 00:21 Morphine IV Q4H PRN Pain, Moderate (4-6) Ondansetron HCl 4 mg 11/21/18 00:16 11/21/18 09:41 Zofran IV 4 mg Q4HR PRN Administration Nausea And Vomiting Pantoprazole Sodium 40 mg 11/21/18 10:00 11/22/18 10:25 Protonix IV 40 mg QDAY MARY JANE Administration Sodium Chloride 10 ml 11/21/18 10:00 11/22/18 10:26 Sodium Chloride Flush Syringe 10 Ml IV 10 ml BID MARY JANE Administration Sodium Chloride 10 ml 11/21/18 00:16 Sodium Chloride Flush Syringe 10 Ml IV PRN PRN LINE FLUSH
--- NOTE | 2018-11-22 13:11 | Progress Note ---
Assessment and Plan Assessment and plan: --Intractable nausea and vomiting; mild improvement Probably secondary to digoxin toxicity, level is trending down, --Digoxin toxicity: digoxin held supportive cares advance diet as tolerated --History of GI bleeding : no new episodes of GI bleeding --Metabolic encephalopathy; probably secondary to digoxin toxicity Digoxin held, cardiology following --Chronic illness: Patient was admitted to [facility] --Chronic diastolic congestive heart failure; 55-60% Continue current cardiac medications, cardiology following --Chronic kidney disease; renal function improving Creatinine trending down, avoid nephrotoxins --History of PE in November 2018; anticoagulation in view of GI bleeding Status post IVC filter placement --Severe malnutrition; cachexia nutrition supplements and supportive care --DVT prophylaxis; SCD Advance diet as tolerated Possible discharge in 1-2 days if stable C History Interval history: Patient seen and examined medical records reviewed Patient feels better sometimes agitated chronically ill-looking, cachectic Mild abdominal pain GI symptoms secondary to digoxin toxicity Tolerating clear liquids Vital signs noted Hospitalist Physical - Constitutional Vitals: Temp Pulse Resp BP Pulse Ox 97.9 F 83 16 160/73 100 11/22/18 07:57 11/22/18 07:57 11/22/18 07:57 11/22/18 07:57 11/22/18 07:57 General appearance: Present: no acute distress, well-nourished, other (patient looks tired) - EENT Eyes: Present: PERRL, EOM intact - Neck Neck: Present: supple, normal ROM - Respiratory Respiratory effort: normal Respiratory: bilateral: diminished, negative: rales, rhonchi, wheezing - Cardiovascular Rhythm: regular Heart Sounds: Present: S1 & S2 - Extremities Extremities: no ischemia, No edema - Abdominal General gastrointestinal: soft, non-tender, non-distended, normal bowel sounds - Integumentary Integumentary: Present: clear, warm - Psychiatric Psychiatric: appropriate mood/affect, cooperative - Neurologic Neurologic: moves all extremities Results - Labs CBC & Chem 7: 11/20/18 21:03 11/23/18 04:38 Labs: Laboratory Last Values WBC 5.5 K/mm3 (4.5-11.0) 11/20/18 21:03 RBC 3.33 M/mm3 (3.65-5.03) L 11/20/18 21:03 Hgb 9.5 gm/dl (10.1-14.3) L 11/20/18 21:03 Hct 29.9 % (30.3-42.9) L 11/20/18 21:03 MCV 90 fl (79-97) 11/20/18 21:03 MCH 29 pg (28-32) 11/20/18 21:03 MCHC 32 % (30-34) 11/20/18 21:03 RDW 19.3 % (13.2-15.2) H 11/20/18 21:03 Plt Count 168 K/mm3 (140-440) 11/20/18 21:03 Lymph % (Auto) 8.6 % (13.4-35.0) L 11/20/18 21:03 [place] % (Auto) 10.0 % (0.0-7.3) H 11/20/18 21:03 Eos % (Auto) 0.5 % (0.0-4.3) 11/20/18 21:03 Baso % (Auto) 1.0 % (0.0-1.8) 11/20/18 21:03 Lymph # 0.5 K/mm3 (1.2-5.4) L 11/20/18 21:03 [place] # 0.5 K/mm3 (0.0-0.8) 11/20/18 21:03 Eos # 0.0 K/mm3 (0.0-0.4) 11/20/18 21:03 Baso # 0.1 K/mm3 (0.0-0.1) 11/20/18 21:03 Seg Neutrophils % 79.9 % (40.0-70.0) H 11/20/18 21:03 Seg Neutrophils # 4.4 K/mm3 (1.8-7.7) 11/20/18 21:03 Sodium 141 mmol/L (137-145) 11/22/18 05:22 Potassium 3.9 mmol/L (3.6-5.0) 11/22/18 05:22 Chloride 96.4 mmol/L (98-107) L 11/22/18 05:22 Carbon Dioxide 32 mmol/L (22-30) H 11/22/18 05:22 17 mmol/L 11/22/18 05:22 BUN 27 mg/dL (7-17) H 11/22/18 05:22 1.7 mg/dL (0.7-1.2) H 11/22/18 05:22 Estimated GFR 34 ml/min 11/22/18 05:22 16 % 11/22/18 05:22 Glucose 95 mg/dL (65-100) 11/22/18 05:22 POC Glucose 123 (70-105) H 11/22/18 12:12 5.5 % (4-6) 11/21/18 12:36 Calcium 8.8 mg/dL (8.4-10.2) 11/22/18 05:22 0.60 mg/dL (0.1-1.2) 11/20/18 21:03 0.3 mg/dL (0-0.2) H 11/20/18 21:03 0.3 mg/dL 11/20/18 21:03 AST 22 units/L (5-40) 11/20/18 21:03 ALT 15 units/L (7-56) 11/20/18 21:03 103 units/L (35-129) 11/20/18 21:03 0.075 ng/mL (0.00-0.029) H 11/20/18 21:03 6.3 g/dL (6.3-8.2) 11/20/18 21:03 2.7 g/dL (3.9-5) L 11/20/18 21:03 0.8 % 11/20/18 21:03 Triglycerides 98 mg/dL (2-149) 11/20/18 21:03 Cholesterol 157 mg/dL (50-199) 11/20/18 21:03 78 mg/dL (50-130) 11/20/18 21:03 66 mg/dL (40-59) H 11/20/18 21:03 2.37 % 11/20/18 21:03 7 units/L (13-60) L 11/20/18 21:03 Digoxin 2.6 ng/mL (0.9-2.0) H* 11/21/18 12:36 Active Medications - Current Medications Current Medications: Generic Name Dose Route Start Last Admin Trade Name Freq PRN Reason Stop Dose Admin Acetaminophen 650 mg 11/21/18 00:16 Tylenol PO Q4H PRN Pain MILD(1-3)/Fever >100.5/OLIVIER Dextrose 50 ml 11/21/18 00:35 D50w (25gm) Syringe IV PRN PRN Hypoglycemia Diltiazem HCl 10 mg 11/21/18 00:26 Cardizem IV Q6H PRN sustained HR > 130 Enoxaparin Sodium 30 mg 11/21/18 10:00 11/22/18 10:26 Lovenox SUB-Q 30 mg QDAY MARY JANE Administration Hyoscyamine 0.125 mg 11/21/18 02:44 11/21/18 09:34 Levsin Sl PO 0.125 mg Q6H PRN Administration Secretions; mild pain (1-3) Insulin Human Lispro 0 unit 11/21/18 06:00 11/22/18 12:14 Humalog SUB-Q Not Given Q6HR [facility] Protocol Morphine Sulfate 2 mg 11/21/18 00:21 Morphine IV Q4H PRN Pain, Moderate (4-6) Ondansetron HCl 4 mg 11/21/18 00:16 11/21/18 09:41 Zofran IV 4 mg Q4HR PRN Administration Nausea And Vomiting Pantoprazole Sodium 40 mg 11/21/18 10:00 11/22/18 10:25 Protonix IV 40 mg QDAY MARY JANE Administration Sodium Chloride 10 ml 11/21/18 10:00 11/22/18 10:26 Sodium Chloride Flush Syringe 10 Ml IV 10 ml BID MARY JANE Administration Sodium Chloride 10 ml 11/21/18 00:16 Sodium Chloride Flush Syringe 10 Ml IV PRN PRN LINE FLUSH Nutrition/Malnutrition Assess - Dietary Evaluation Nutrition/Malnutrition Findings: Nutrition Notes Start: 11/21/18 09:51 Freq: Status: Active Protocol: Document 11/21/18 09:51 LP (Rec: 11/21/18 09:58 LP [email or web address]) Nutrition Notes Need for Assessment generated from: MD Order Initial or Follow up Assessment Current Diagnosis Acute Kidney Injury,Diabetes, Hypertension,Heart Failure Other Pertinent Diagnosis abdominal pain, sacral wound Current Diet NPO Labs/Tests BUN 27 Cr 1.9 Pertinent Medications Reviewed Height 5 ft 5 in Weight 65 kg [place] Body Weight (kg) 56.81 BMI 23.8 Subjective/Other Information Consult for diet education. Pt states not eating well due to pain. Pt state UBW is 155lbs. 5 kg wt loss and unsure of timeframe. Pt states she is having trouble swallowing, feels like something is stuck. Burn Absent Trauma Absent Minimum of two criteria Yes Energy Intake (severe) < or equal to 50% Estimated Energy Requirement > or equal to 5 days Body Fat Depletion Mild depletion (non-severe) Muscle Mass Mild Depletion (non-severe) #2 Nutrition Diagnosis Increased nutrient needs ( specify in comment below) Comments: protein Etiology Wound healing As Evidenced by Signs and Symptoms Pt with sacral wound #1 Nutrition Diagnosis Malnutrition Etiology abdominal pain As Evidenced by Signs and Symptoms Pt not eating well [employer]. Observed some temporal wasting , fat mass and muscle depletion. Is patient on ventilator? No Is Patient Ambulatory and/or Out of Bed No REE-([facility]-confined to bed) 1304.724 Calculation Used for Recommendations [facility] Additional Notes Protein needs are 78-98g (1.2- 1.5g/kg) Fluid needs are 1ml/kcal Nutrition Intervention Change Diet Order: Advance diet as feasible Goal #1 SITE SUPERVISING TECHNICAL OPERATOR to evaluate swallowing Goal #2 Advance diet as feasible Goal #3 Wt maintenance/gain Goal #4 Wound healing Anticipated Discharge Needs: Unable to determine at this time Follow-Up By: 11/24/18 Additional Comments Follow for SITE SUPERVISING TECHNICAL OPERATOR note, POC
[2018-11-23] MEDS: HumaLOG SUB-Q SCH ×5 (01:34→17:46)
[2018-11-23] MEDS: SODIUM CHLORIDE FLUSH SYRINGE 10 ML IV SCH ×2 (01:36→10:34)
[2018-11-23 05:43] LABS: Calcium 8.7 mg/dL (8.4-10.2)
--- NOTE | 2018-11-23 09:12 | Progress Note ---
Assessment and Plan Chronic diastolic heart failure with cor pulmonale on echo done at [place] November 2018. Echo at [place] showing normal LVEF, Grade 2 DDx, moderate RVE, moderate to severe TR, RVSP 77 mm Hg and dilated IVC Echo done here showing no interval changes History of acute PE November 2018 not on anticoagulation due to lower GI bleeding. s/p IVC filter. Endoscopy not performed at [facility]. Recently admitted to [place] for aspiration pneumonia, respiratory failure and discharged to home hospice Chronic renal failure with a creatinine of 2.11 Abdominal pain, nausea and vomiting - reason for admission Secondary to dig toxicity NAP on abdomen CT Recommendations: Supportive care No further cardiac work-up Avoid digoxin upon discharge Subjective Date of service: 11/23/18 Principal diagnosis: Nausea and vomiting Interval history: No cardiac complaints Nausea has resolved Objective Vital Signs Temp Pulse Resp BP BP Pulse Ox 11/23/18 08:03 98.0 F 80 16 169/84 100 11/23/18 05:00 82 11/23/18 04:38 97.5 F L 11/23/18 04:28 83 18 128/68 95 11/22/18 23:11 97.9 F 78 18 107/48 95 11/22/18 20:49 98.3 F 86 18 140/80 98 11/22/18 17:49 97.4 F L 83 16 138/74 99 11/22/18 13:39 98.1 F 82 14 149/72 100 - Physical Examination General: Appears Well Neck: Positive: neck supple Cardiac: Positive: Reg Rate and Rhythm Lungs: Positive: Decreased Breath Sounds - Labs and Meds Comprehensive Metabolic Panel 11/23/18 Range/Units 04:38 Sodium 142 (137-145) mmol/L Potassium 3.5 L (3.6-5.0) mmol/L Chloride 94.9 L (98-107) mmol/L Carbon Dioxide 36 H (22-30) mmol/L BUN 27 H (7-17) mg/dL Creatinine 1.8 H (0.7-1.2) mg/dL Glucose 128 H (65-100) mg/dL Calcium 8.7 (8.4-10.2) mg/dL - Allied health notes Allied health notes reviewed: nursing
[2018-11-23] MEDS: PROTONIX IV SCH (10:33)
[2018-11-23] MEDS: LOVENOX SUB-Q SCH (10:34)
[2018-11-23] MEDS: D5NS 1,000 ML IV SCH ×2 (11:24→21:28)
--- NOTE | 2018-11-23 11:30 | Progress Note ---
Assessment and Plan - Patient Problems (1) Acute renal failure Current Visit: Yes Status: Acute Qualifiers: Acute renal failure type: unspecified Qualified Code(s): N17.9 - Acute kidney failure, unspecified Plan to address problem: Overall renal function is stable. Continue to monitor. (2) CHF (congestive heart failure) Current Visit: Yes Status: Acute Qualifiers: Heart failure type: unspecified Heart failure chronicity: unspecified Qualified Code(s): I50.9 - Heart failure, unspecified Plan to address problem: Seems to be euvolemic at this time. Pending review of previous ECHO from [place]. Await cardiology recommendations. (3) Chronic kidney disease, unspecified Current Visit: Yes Status: Acute Qualifiers: Chronic kidney disease stage: stage 3 (moderate) Qualified Code(s): N18.3 - Chronic kidney disease, stage 3 (moderate) Plan to address problem: Renal function seems to be improving slowly, unclear overall baseline. (4) Digoxin toxicity Current Visit: Yes Status: Acute Qualifiers: Encounter type: initial encounter Injury intent: accidental or unintentional Qualified Code(s): T46.0X1A - Poisoning by cardiac-stimulant glycosides and drugs of similar action, accidental (unintentional), initial encounter Plan to address problem: Digoxin level noted, agree with continuing to hold. (5) Hypertensive chronic kidney disease with stage 1 through stage 4 chronic kidney disease, or unspecified chronic kidney disease Current Visit: Yes Status: Chronic Plan to address problem: Monitor on current regimen. (6) Nausea and vomiting Current Visit: Yes Status: Acute Plan to address problem: Symptomatic management per primary attending. May be in the setting of digoxin toxicity. Will monitor. Subjective Date of service: 11/23/18 Principal diagnosis: Nausea and vomiting Interval history: No acute issues from renal standpoint overnight. Her overall renal function remains stable. Digoxin levels have improved. Objective - Vital Signs Vital signs: Vital Signs - 12hr 11/23/18 11/23/18 11/23/18 04:28 04:38 05:00 Temperature 97.5 F L Pulse Rate 83 82 Respiratory 18 Rate Blood Pressure 128/68 O2 Sat by Pulse 95 Oximetry 11/23/18 08:03 Temperature 98.0 F Pulse Rate 80 Respiratory 16 Rate Blood Pressure 169/84 O2 Sat by Pulse 100 Oximetry - General Appearance General appearance: cachectic, chronically ill, frail EENT: ATNC, PERRL Neck: no JVD, no thyromegaly Respiratory: Present: Clear to Ascultation Cardiology: regular, S1S2 Gastrointestinal: normal, normoactive bowel sounds Integumentary: no rash, warm and dry Neurologic: no focal deficit Musculoskeletal: other (-edema ) Psychiatric: cooperative - Lab 11/20/18 21:03 11/23/18 04:38 Most recent lab results Calcium 8.7 mg/dL (8.4-10.2) 11/23/18 04:38 - Allied health notes Allied health notes reviewed: nursing Medications & Allergies - Medications Allergies/Adverse Reactions: Allergies No Known Allergies Allergy (Verified 11/20/18 20:04) Home Medications: Home Medications Medication Instructions Recorded Confirmed Last Taken Type Amiodarone [Cordarone 200 MG TAB] 200 mg PO DAILY 11/20/18 11/20/18 Unknown History Digoxin [Lanoxin] 0.125 mg PO DAILY 11/20/18 11/20/18 Unknown History Furosemide [Lasix TAB] 40 mg PO QDAY 11/20/18 11/20/18 Unknown History Hyoscyamine Sulfate [Hyoscyamine 0.125 mg PO Q6HR PRN 11/20/18 11/20/18 Unknown History Rapdis 0.125 mg] Ondansetron [Zofran TAB] 4 mg PO Q4HR PRN 11/20/18 11/20/18 Unknown History Pantoprazole [Protonix TAB] 40 mg PO BID 11/20/18 11/20/18 Unknown History dilTIAZem HCl [Diltiazem ER] 180 mg PO DAILY 11/20/18 11/20/18 Unknown History traMADol [Ultram] 50 mg PO Q8HR PRN 11/20/18 11/20/18 Unknown History Active Medications: Generic Name Dose Route Start Last Admin Trade Name Freq PRN Reason Stop Dose Admin Acetaminophen 650 mg 11/21/18 00:16 11/23/18 01:35 Tylenol PO 650 mg Q4H PRN Administration Pain MILD(1-3)/Fever >100.5/OLIVIER Dextrose 50 ml 11/21/18 00:35 D50w (25gm) Syringe IV PRN PRN Hypoglycemia Diltiazem HCl 10 mg 11/21/18 00:26 Cardizem IV Q6H PRN sustained HR > 130 Enoxaparin Sodium 30 mg 11/21/18 10:00 11/23/18 10:34 Lovenox SUB-Q 30 mg QDAY MARY JANE Administration Hyoscyamine 0.125 mg 11/21/18 02:44 11/21/18 09:34 Levsin Sl PO 0.125 mg Q6H PRN Administration Secretions; mild pain (1-3) Dextrose/Sodium Chloride 1,000 mls @ 100 mls/hr 11/23/18 11:00 11/23/18 11:24 D5ns IV 100 mls/hr DIRECT MARY JANE Administration Insulin Human Lispro 0 unit 11/21/18 06:00 11/23/18 10:31 Humalog SUB-Q Not Given Q6HR MARY JANE Protocol Morphine Sulfate 2 mg 11/21/18 00:21 Morphine IV Q4H PRN Pain, Moderate (4-6) Ondansetron HCl 4 mg 11/21/18 00:16 11/21/18 09:41 Zofran IV 4 mg Q4HR PRN Administration Nausea And Vomiting Pantoprazole Sodium 40 mg 11/21/18 10:00 11/23/18 10:33 Protonix IV 40 mg QDAY MARY JANE Administration Sodium Chloride 10 ml 11/21/18 10:00 11/23/18 10:34 Sodium Chloride Flush Syringe 10 Ml IV 10 ml BID MARY JANE Administration Sodium Chloride 10 ml 11/21/18 00:16 Sodium Chloride Flush Syringe 10 Ml IV PRN PRN LINE FLUSH
--- NOTE | 2018-11-23 13:34 | Progress Note ---
Assessment and Plan Assessment and plan: --Metabolic encephalopathy: Secondary to underlying disease process, chronic illness Supportive care, CT brain without contrast --Hypokalemia; replace with KCl, evidence --Digoxin toxicity; digoxin held Digoxin levels trended down to within normal range --Intractable nausea and vomiting; mild improvement Probably secondary to digoxin toxicity, level normal limits Patient had past history of GI bleeding. No active bleeding now --[facility] --Chronic diastolic congestive heart failure; 55-60% Continue current cardiac medications, cardiology following --Chronic kidney disease; renal function improving Creatinine trending down, avoid nephrotoxins, nephrology following --History of PE in November 2018;not on anticoagulation in view of GI bleeding Status post IVC filter placement --Severe malnutrition; nutrition supplements and supportive care --DVT prophylaxis; SCD Advance diet as tolerated Possible discharge in 1-2 days if stable --CODE STATUS discussed with granddaughter Ms Segal [phone] The patient reports that patient is on home hospice care, DO NOT RESUSCITATE status Patient is DO NOT RESUSCITATE status Critical care time 35 minutes History Interval history: Patient seen and examined this morning medical records reviewed Patient is less responsive this morning however this afternoon patient is unresponsive Chronically ill-looking , cachectic , initiated .Not in acute distress Vital Signs reviewed Hospitalist Physical - Constitutional Vitals: Temp Pulse Resp BP Pulse Ox 98.0 F 80 16 169/84 98 11/23/18 08:03 11/23/18 12:00 11/23/18 08:03 11/23/18 08:03 11/23/18 11:00 General appearance: Present: no acute distress, cachectic, disheveled, other (emaciated) - EENT Eyes: Present: PERRL, EOM intact - Neck Neck: Present: supple - Respiratory Respiratory effort: normal Respiratory: bilateral: diminished, negative: rales, rhonchi, wheezing - Cardiovascular Rhythm: regular Heart Sounds: Present: S1 & S2 - Extremities Extremities: no ischemia, No edema - Abdominal General gastrointestinal: soft, non-tender, non-distended, normal bowel sounds - Integumentary Integumentary: Present: clear, warm - Psychiatric Psychiatric: other (unresponsive) - Neurologic Neurologic: other (noncommunicative) Results - Labs CBC & Chem 7: 11/20/18 21:03 11/23/18 04:38 Labs: Laboratory Last Values WBC 5.5 K/mm3 (4.5-11.0) 11/20/18 21:03 RBC 3.33 M/mm3 (3.65-5.03) L 11/20/18 21:03 Hgb 9.5 gm/dl (10.1-14.3) L 11/20/18 21:03 Hct 29.9 % (30.3-42.9) L 11/20/18 21:03 MCV 90 fl (79-97) 11/20/18 21:03 MCH 29 pg (28-32) 11/20/18 21:03 MCHC 32 % (30-34) 11/20/18 21:03 RDW 19.3 % (13.2-15.2) H 11/20/18 21:03 Plt Count 168 K/mm3 (140-440) 11/20/18 21:03 Lymph % (Auto) 8.6 % (13.4-35.0) L 11/20/18 21:03 [place] % (Auto) 10.0 % (0.0-7.3) H 11/20/18 21:03 Eos % (Auto) 0.5 % (0.0-4.3) 11/20/18 21:03 Baso % (Auto) 1.0 % (0.0-1.8) 11/20/18 21:03 Lymph # 0.5 K/mm3 (1.2-5.4) L 11/20/18 21:03 [place] # 0.5 K/mm3 (0.0-0.8) 11/20/18 21:03 Eos # 0.0 K/mm3 (0.0-0.4) 11/20/18 21:03 Baso # 0.1 K/mm3 (0.0-0.1) 11/20/18 21:03 Seg Neutrophils % 79.9 % (40.0-70.0) H 11/20/18 21:03 Seg Neutrophils # 4.4 K/mm3 (1.8-7.7) 11/20/18 21:03 Sodium 142 mmol/L (137-145) 11/23/18 04:38 Potassium 3.5 mmol/L (3.6-5.0) L 11/23/18 04:38 Chloride 94.9 mmol/L (98-107) L 11/23/18 04:38 Carbon Dioxide 36 mmol/L (22-30) H 11/23/18 04:38 15 mmol/L 11/23/18 04:38 BUN 27 mg/dL (7-17) H 11/23/18 04:38 1.8 mg/dL (0.7-1.2) H 11/23/18 04:38 Estimated GFR 32 ml/min 11/23/18 04:38 15 % 11/23/18 04:38 Glucose 128 mg/dL (65-100) H 11/23/18 04:38 POC Glucose 128 (70-105) H 11/23/18 06:30 5.5 % (4-6) 11/21/18 12:36 Calcium 8.7 mg/dL (8.4-10.2) 11/23/18 04:38 0.60 mg/dL (0.1-1.2) 11/20/18 21:03 0.3 mg/dL (0-0.2) H 11/20/18 21:03 0.3 mg/dL 11/20/18 21:03 AST 22 units/L (5-40) 11/20/18 21:03 ALT 15 units/L (7-56) 11/20/18 21:03 103 units/L (35-129) 11/20/18 21:03 0.075 ng/mL (0.00-0.029) H 11/20/18 21:03 6.3 g/dL (6.3-8.2) 11/20/18 21:03 2.7 g/dL (3.9-5) L 11/20/18 21:03 0.8 % 11/20/18 21:03 Triglycerides 98 mg/dL (2-149) 11/20/18 21:03 Cholesterol 157 mg/dL (50-199) 11/20/18 21:03 78 mg/dL (50-130) 11/20/18 21:03 66 mg/dL (40-59) H 11/20/18 21:03 2.37 % 11/20/18 21:03 7 units/L (13-60) L 11/20/18 21:03 Digoxin 2.0 ng/mL (0.9-2.0) 11/22/18 13:47 Active Medications - Current Medications Current Medications: Generic Name Dose Route Start Last Admin Trade Name Freq PRN Reason Stop Dose Admin Acetaminophen 650 mg 11/21/18 00:16 11/23/18 01:35 Tylenol PO 650 mg Q4H PRN Administration Pain MILD(1-3)/Fever >100.5/OLIVIER Dextrose 50 ml 11/21/18 00:35 D50w (25gm) Syringe IV PRN PRN Hypoglycemia Diltiazem HCl 10 mg 11/21/18 00:26 Cardizem IV Q6H PRN sustained HR > 130 Enoxaparin Sodium 30 mg 11/21/18 10:00 11/23/18 10:34 Lovenox SUB-Q 30 mg QDAY MARY JANE Administration Hyoscyamine 0.125 mg 11/21/18 02:44 11/21/18 09:34 Levsin Sl PO 0.125 mg Q6H PRN Administration Secretions; mild pain (1-3) Dextrose/Sodium Chloride 1,000 mls @ 100 mls/hr 11/23/18 11:00 11/23/18 11:24 D5ns IV 100 mls/hr DIRECT MARY JANE Administration Insulin Human Lispro 0 unit 11/21/18 06:00 11/23/18 12:57 Humalog SUB-Q Not Given Q6HR [facility] Protocol Morphine Sulfate 2 mg 11/21/18 00:21 Morphine IV Q4H PRN Pain, Moderate (4-6) Ondansetron HCl 4 mg 11/21/18 00:16 11/21/18 09:41 Zofran IV 4 mg Q4HR PRN Administration Nausea And Vomiting Pantoprazole Sodium 40 mg 11/21/18 10:00 11/23/18 10:33 Protonix IV 40 mg QDAY MARY JANE Administration Sodium Chloride 10 ml 11/21/18 10:00 11/23/18 10:34 Sodium Chloride Flush Syringe 10 Ml IV 10 ml BID MARY JANE Administration Sodium Chloride 10 ml 11/21/18 00:16 Sodium Chloride Flush Syringe 10 Ml IV PRN PRN LINE FLUSH Nutrition/Malnutrition Assess - Dietary Evaluation Nutrition/Malnutrition Findings: Nutrition Notes Start: 11/21/18 09:51 Freq: Status: Active Protocol: Document 11/21/18 09:51 LP (Rec: 06/21/19 09:58 LP [id number]) Nutrition Notes Need for Assessment generated from: MD Order Initial or Follow up Assessment Current Diagnosis Acute Kidney Injury,Diabetes, Hypertension,Heart Failure Other Pertinent Diagnosis abdominal pain, sacral wound Current Diet NPO Labs/Tests BUN 27 Cr 1.9 Pertinent Medications Reviewed Height 5 ft 5 in Weight 65 kg [place] Body Weight (kg) 56.81 BMI 23.8 Subjective/Other Information Consult for diet education. Pt states not eating well due to pain. Pt state UBW is 155lbs. 5 kg wt loss and unsure of timeframe. Pt states she is having trouble swallowing, feels like something is stuck. 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 Is patient on ventilator? No Is Patient Ambulatory and/or Out of Bed No REE-([facility]-confined to bed) 1304.724 Calculation Used for Recommendations [facility] Additional Notes Protein needs are 78-98g (1.2- 1.5g/kg) Fluid needs are 1ml/kcal Nutrition Intervention Change Diet Order: Advance diet as feasible Goal #1 SLAG SKIMMER to evaluate swallowing Goal #2 Advance diet as feasible Goal #3 Wt maintenance/gain Goal #4 Wound healing Anticipated Discharge Needs: Unable to determine at this time Follow-Up By: 11/24/18 Additional Comments Follow for SLAG SKIMMER note, POC
[2018-11-23] MEDS ORDERED: K-DUR PO ONE (15:17)
[2018-11-24] MEDS: SODIUM CHLORIDE FLUSH SYRINGE 10 ML IV SCH ×2 (00:57→09:22)
[2018-11-24] MEDS: HumaLOG SUB-Q SCH ×3 (00:57→13:11)
[2018-11-24] MEDS: D5NS 1,000 ML IV SCH (08:07)
--- NOTE | 2018-11-24 08:19 | Discharge Summary ---
Providers - Providers Date of Admission: 11/21/18 00:16 Date of discharge: 11/24/18 Attending physician: NASIR SMITH 11/21/18 00:21 Consult to Physician [CONS] Routine Comment: Consulting Provider: JOAN LAMAS Physician Instructions: Reason For Exam: dig toxicity, chf, 11/21/18 00:28 Consult to Physician [CONS] Routine Comment: Consulting Provider: IRIS SOLANO Physician Instructions: Reason For Exam: mat 11/21/18 00:36 Consult to Dietitian/Nutrition [CONS] Routine Physician Instructions: 10 Reason For Exam: Reason for Consult: Diet education 11/22/18 07:22 Consult to Wound/ET Nurse [CONS] Routine Reason For Exam: wound eval [facility] Reason for admission: nausea vomiting abdominal pain/acute kidney injury Condition: Fair Pertinent studies: CT abdomen and pelvis extremities abdomen; no acute abnormality Echocardiogram; EF 55-60% Moderate to severe pulmonic regurgitation Evidence of severe pulmonary hypertension X-ray abdomen Chest x-ray mild infiltrate pleural effusion might indicate pulmonary venous congestion consistent with CHF patchy density left lower lung wasn't epileptic versus infiltrative changes Hospital course: Very frail, 88-year old female patient was admitted through emergency room with nausea, vomiting abdominal pain Initial workup consistent with renal failure and digoxin toxicity. It's reported the patient was recently discharged from [facility] after treatment of CHF. Patient is symptomatically managed patient had episodes altered level of consciousness and responsiveness with stable vital signs Patient is under the care of home hospice. Patient's symptoms significantly improved.Cardiology had stopped digoxin because of dig toxicity Today patient is comfortable in no new complaints vital signs stable Alert awake oriented Physical examination the discharge is unremarkable Patient is hemodynamically and clinically stable to discharge home with home hospice Discharge diagnosis; And treatment plan --Metabolic encephalopathy: Secondary to underlying disease process, chronic illness Supportive care, CT brain without contrast --Hypokalemia; replace with KCl, evidence --Digoxin toxicity; digoxin held Digoxin levels trended down to within normal range --Intractable nausea and vomiting; mild improvement Probably secondary to digoxin toxicity, level normal limits Patient had past history of GI bleeding. No active bleeding now --Chronic illness: [facility] --Chronic diastolic congestive heart failure; 55-60% Continue current cardiac medications, cardiology following --Chronic kidney disease; renal function improving Creatinine trending down, avoid nephrotoxins, nephrology following --History of PE in November 2018;not on anticoagulation in view of GI bleeding Status post IVC filter placement --Severe malnutrition; nutrition supplements and supportive care --DVT prophylaxis; SCD Advance diet as tolerated Possible discharge in 1-2 days if stable --CODE STATUS discussed with granddaughter Ms Segal [phone] The patient reports that patient is on home hospice care, DO NOT RESUSCITATE status Patient is DO NOT RESUSCITATE status Disposition: DC-50 TO HOSPICE (HOME) Time spent for discharge: 33 min Core Measure Documentation - Palliative Care Palliative Care/ Comfort Measures: Hospice Care - Core Measures Any of the following diagnoses?: none Exam - Constitutional Vitals: Temp Pulse Resp BP Pulse Ox 97.4 F L 93 H 18 134/68 100 11/24/18 04:13 11/24/18 04:11 11/24/18 04:11 11/24/18 04:11 11/24/18 04:11 General appearance: Present: no acute distress, well-nourished - EENT Eyes: Present: PERRL, EOM intact - Neck Neck: Present: supple, normal ROM - Respiratory Respiratory effort: normal Respiratory: bilateral: diminished, negative: rales, rhonchi, wheezing - Cardiovascular Rhythm: regular Heart Sounds: Present: S1 & S2 - Extremities Extremities: no ischemia, No edema - Abdominal General gastrointestinal: Present: soft, non-tender, non-distended, normal bowel sounds - Integumentary Integumentary: Present: clear, warm - Musculoskeletal Musculoskeletal: strength equal bilaterally, generalized weakness - Psychiatric Psychiatric: cooperative, other (confused at times) - Neurologic Neurologic: moves all extremities Plan Activity: advance as tolerated, fall precautions Diet: advance as tolerated Special Instructions: home hospice Additional Instructions: Fall precautions. Patient did not need Cardizem. Amiodarone during the hospital stay. Check with primary care physician, assessment specialist before starting these 2 meds. Patient had digoxin toxicity, digoxin is discontinued by cardiology. Diet as tolerated Follow up with: VARUN RAYAMILDRED MD MAGGIE [Primary Care Provider] - 3-5 Days HOLLIS LARA MD [Staff Physician] - 7 Days IRIS SOLANO MD [Staff Physician] - 7 Days Prescriptions: dilTIAZem HCl [Cardizem Cd] 180 mg PO DAILY #30 cap.er.24h Amiodarone [Cordarone 200 MG TAB] 200 mg PO DAILY #30 tablet
[2018-11-24] MEDS: PROTONIX IV SCH (09:21)
[2018-11-24] MEDS: LOVENOX SUB-Q SCH (09:21)
--- NOTE | 2018-11-24 10:44 | Progress Note ---
Assessment and Plan - Patient Problems (1) Acute renal failure Current Visit: Yes Status: Acute Qualifiers: Acute renal failure type: unspecified Qualified Code(s): N17.9 - Acute kidney failure, unspecified Plan to address problem: Overall renal function is stable. Continue to monitor. From renal standpoint patient is stable for DC (2) CHF (congestive heart failure) Current Visit: Yes Status: Acute Qualifiers: Heart failure type: unspecified Heart failure chronicity: unspecified Qualified Code(s): I50.9 - Heart failure, unspecified Plan to address problem: Seems to be euvolemic at this time. Pending review of previous ECHO from [place]. Await cardiology recommendations. (3) Chronic kidney disease, unspecified Current Visit: Yes Status: Acute Qualifiers: Chronic kidney disease stage: stage 3 (moderate) Qualified Code(s): N18.3 - Chronic kidney disease, stage 3 (moderate) Plan to address problem: Renal function seems to be improving slowly, unclear overall baseline. Overall renal function is stable and from a nephrology standpoint patient is stable for DC. (4) Digoxin toxicity Current Visit: Yes Status: Acute Qualifiers: Encounter type: initial encounter Injury intent: accidental or unintentional Qualified Code(s): T46.0X1A - Poisoning by cardiac-stimulant glycosides and drugs of similar action, accidental (unintentional), initial encounter Plan to address problem: Digoxin level noted, agree with continuing to hold. (5) Hypertensive chronic kidney disease with stage 1 through stage 4 chronic kidney disease, or unspecified chronic kidney disease Current Visit: Yes Status: Chronic Plan to address problem: Monitor on current regimen. (6) Nausea and vomiting Current Visit: Yes Status: Acute Plan to address problem: Symptomatic management per primary attending. May be in the setting of digoxin toxicity. Will monitor. Subjective Date of service: 11/24/18 Principal diagnosis: Nausea and vomiting Interval history: Patient seen earlier this am. No acute issues overnight. Labs noted, overall renal function is stable. Objective - Vital Signs Vital signs: Vital Signs - 12hr 11/24/18 11/24/18 11/24/18 00:37 00:38 01:13 Temperature 97.6 F Pulse Rate 73 Respiratory 18 20 Rate Blood Pressure 143/70 O2 Sat by Pulse 100 98 Oximetry 11/24/18 11/24/18 11/24/18 04:09 04:11 04:13 Temperature 97.4 F L Pulse Rate 75 93 H Respiratory 18 Rate Blood Pressure 134/68 O2 Sat by Pulse 100 Oximetry 11/24/18 08:28 Temperature 98.3 F Pulse Rate 90 Respiratory 16 Rate Blood Pressure 163/86 O2 Sat by Pulse 100 Oximetry - General Appearance General appearance: well-developed, well-nourished EENT: ATNC, PERRL Neck: no JVD, no thyromegaly Respiratory: Present: Clear to Ascultation Cardiology: regular, S1S2 Gastrointestinal: normal, normoactive bowel sounds Integumentary: no rash, warm and dry Neurologic: no focal deficit, asterixis Psychiatric: mood/affect appropriate, cooperative - Lab 11/20/18 21:03 11/23/18 04:38 Most recent lab results Calcium 8.7 mg/dL (8.4-10.2) 11/23/18 04:38 - Allied health notes Allied health notes reviewed: nursing Medications & Allergies - Medications Allergies/Adverse Reactions: Allergies No Known Allergies Allergy (Verified 11/20/18 20:04) Home Medications: Home Medications Medication Instructions Recorded Confirmed Last Taken Type Hyoscyamine Sulfate [Hyoscyamine 0.125 mg PO Q6HR PRN 11/20/18 11/20/18 Unknown History Rapdis 0.125 mg] Ondansetron [Zofran TAB] 4 mg PO Q4HR PRN 11/20/18 11/20/18 Unknown History Pantoprazole [Protonix TAB] 40 mg PO BID 11/20/18 11/20/18 Unknown History traMADol [Ultram 50 MG tab] 50 mg PO Q8HR PRN 11/20/18 11/20/18 Unknown History Amiodarone [Cordarone 200 MG TAB] 200 mg PO DAILY #30 tablet 11/24/18 Unknown Rx dilTIAZem HCl [Cardizem Cd] 180 mg PO DAILY #30 cap.er.24h 11/24/18 Unknown Rx Active Medications: Generic Name Dose Route Start Last Admin Trade Name Freq PRN Reason Stop Dose Admin Acetaminophen 650 mg 11/21/18 00:16 11/23/18 01:35 Tylenol PO 650 mg Q4H PRN Administration Pain MILD(1-3)/Fever >100.5/OLIVIER Dextrose 50 ml 11/21/18 00:35 D50w (25gm) Syringe IV PRN PRN Hypoglycemia Diltiazem HCl 10 mg 11/21/18 00:26 Cardizem IV Q6H PRN sustained HR > 130 Enoxaparin Sodium 30 mg 11/21/18 10:00 11/24/18 09:21 Lovenox SUB-Q 30 mg QDAY MARY JANE Administration Hyoscyamine 0.125 mg 11/21/18 02:44 11/21/18 09:34 Levsin Sl PO 0.125 mg Q6H PRN Administration Secretions; mild pain (1-3) Dextrose/Sodium Chloride 1,000 mls @ 100 mls/hr 11/23/18 11:00 11/24/18 08:07 D5ns IV 100 mls/hr DIRECT MARY JANE Administration Insulin Human Lispro 0 unit 11/21/18 06:00 11/24/18 06:38 Humalog SUB-Q Not Given Q6HR MARY JANE Protocol Morphine Sulfate 2 mg 11/21/18 00:21 Morphine IV Q4H PRN Pain, Moderate (4-6) Ondansetron HCl 4 mg 11/21/18 00:16 11/21/18 09:41 Zofran IV 4 mg Q4HR PRN Administration Nausea And Vomiting Pantoprazole Sodium 40 mg 11/21/18 10:00 11/24/18 09:21 Protonix IV 40 mg QDAY MARY JANE Administration Sodium Chloride 10 ml 11/21/18 10:00 11/24/18 09:22 Sodium Chloride Flush Syringe 10 Ml IV 10 ml BID MARY JANE Administration Sodium Chloride 10 ml 11/21/18 00:16 Sodium Chloride Flush Syringe 10 Ml IV PRN PRN LINE FLUSH
--- NOTE | 2018-11-24 12:32 | Progress Note ---
Assessment and Plan Abdominal pain, nausea and vomiting - reason for admission Secondary to dig toxicity Chronic diastolic heart failure with cor pulmonale on echo done at [place] November 2018. Echo done here showing no interval changes History of acute PE November 2018 not on anticoagulation due to lower GI bleeding. s/p IVC filter. Endoscopy not performed at [place]. Chronic renal failure Recently admitted to [place] for aspiration pneumonia, respiratory failure and discharged to home hospice Conservative cardiac management. Subjective Date of service: 11/24/18 Principal diagnosis: Nausea and vomiting Interval history: Patient is resting in bed with her eyes closed. For planned discharge to hospice today. Objective Vital Signs Temp Pulse Pulse Pulse Pulse Resp BP 11/24/18 10:50 93 H 93 H 93 H 19 11/24/18 08:28 98.3 F 90 16 163/86 11/24/18 04:13 97.4 F L 11/24/18 04:11 93 H 18 134/68 11/24/18 04:09 75 11/24/18 01:13 20 11/24/18 00:38 97.6 F 11/24/18 00:37 73 18 143/70 11/23/18 19:59 97.5 F L 11/23/18 19:52 73 20 123/58 11/23/18 18:08 98.2 F 78 14 152/73 11/23/18 17:59 76 11/23/18 15:00 77 11/23/18 12:57 78 161/79 11/23/18 12:40 79 156/77 Pulse Ox 11/24/18 10:50 99 11/24/18 08:28 100 11/24/18 04:13 11/24/18 04:11 100 11/24/18 04:09 11/24/18 01:13 98 11/24/18 00:38 11/24/18 00:37 100 11/23/18 19:59 11/23/18 19:52 100 11/23/18 18:08 99 11/23/18 17:59 11/23/18 15:00 11/23/18 12:57 100 11/23/18 12:40 100 - Physical Examination General: No Apparent Distress Cardiac: Positive: Reg Rate and Rhythm - Allied health notes Allied health notes reviewed: nursing
[2018-11-24 13:52] VITALS: BP 143/77
[2018-11-25] MEDS ORDERED: PREVACID SOLUTAB FEEDTUBE SCH (10:00)
== END 2018-11-24 14:25 | disposition hospice, home (50) | DRG 682 ==
LOC: ED 19:59 → 4A 11-21 00:16
PROVIDERS: ADMIT Internal Medicine; ATTEND Internal Medicine
DX: N17.0 Acute kidney failure with tubular necrosis (principal); E43 Unspecified severe protein-calorie malnutrition; I50.33 Acute on chronic diastolic (congestive) heart failure; G93.41 Metabolic encephalopathy; I13.0 Hypertensive heart and chronic kidney disease with heart failure and stage 1 through stage 4 chronic kidney disease, or unspecified chronic kidney disease; I48.2 Chronic atrial fibrillation; N18.3 Chronic kidney disease, stage 3 (moderate); R10.9 Unspecified abdominal pain; E87.6 Hypokalemia; Z66 Do not resuscitate; I27.20 Pulmonary hypertension, unspecified; T46.0X5A Adverse effect of cardiac-stimulant glycosides and drugs of similar action, initial encounter; R11.2 Nausea with vomiting, unspecified; K76.89 Other specified diseases of liver; E11.22 Type 2 diabetes mellitus with diabetic chronic kidney disease; Z87.11 Personal history of peptic ulcer disease; Z86.711 Personal history of pulmonary embolism; Z87.891 Personal history of nicotine dependence; Z79.899 Other long term (current) drug therapy; Y92.098 Other place in other non-institutional residence as the place of occurrence of the external cause; Z83.3 Family history of diabetes mellitus; Z80.9 Family history of malignant neoplasm, unspecified; Z83.6 Family history of other diseases of the respiratory system
CPT/HCPCS: 36415; 71045; 74019; 74176; 80048; 80061; 80076; 80162; 82270; 82962; 83036; 83690; 84484; 85025; 93005; 93010; 93306; G0378; C9113; J1650; J2270; J2405; J7040; J7042